=== PATIENT | female | born 1980 | race Caucasian/White ===

== ENCOUNTER 2017-04-30 10:16 | Emergency (ER) | payer BC ==
[2017-04-30 10:59] VITALS: BP 103/80
--- NOTE | 2017-04-30 12:05 | UC ---
Back Pain HPI - HPI Summary HPI Summary: Pt c/o gradual onset of right side flank pain and discomfort that is "comes and goes" over the last few days. Pt has history of kidney stones. - History of Current Complaint Chief Complaint: UCBackPain Stated Complaint: RT SIDED BACK PAIN Time Seen by Provider: 04/30/17 11:58 Hx Obtained From: Patient Hx Last Menstrual Period: 04/16/17 ?: No Onset/Duration: Gradual Onset, Lasting Days, Still Present Timing: Intermittent Severity Initially: Mild Severity Currently: Moderate Pain Intensity: 6 Back Pain: Is Discrete @ - right flank Character: Sharp, Spasmodic Aggravating Factor(s): Nothing Alleviating Factor(s): Nothing Associated Signs And Symptoms: Positive: Flank Pain - Risk Factors AAA Risk Factors: Negative TAD Risk Factors: Negative Cauda Equina Risk Factors: Negative Epidural Abscess Risk Factors: Negative - Allergies/Home Medications Allergies/Adverse Reactions: Allergies Allergy/AdvReac Type Severity Reaction Status Date / Time codeine Allergy Hallucinati Verified 04/30/17 10:54 ons PMH/Surg Hx/FS Hx/Imm Hx Previously Healthy: Yes - Surgical History Surgical History: None - Family History Known Family History: Positive: Cardiac Disease - Social History Occupation: Employed Full-time Lives: With Family Alcohol Use: None Substance Use Type: None Smoking Status (MU): Never Smoked Tobacco Have You Smoked in the Last Year: No Review of Systems Constitutional: Negative Skin: Negative Eyes: Negative ENT: Negative Respiratory: Negative Cardiovascular: Negative Gastrointestinal: Negative Genitourinary: Dysuria, Frequency, Urgency Motor: Negative Neurovascular: Negative Musculoskeletal: Negative Neurological: Negative Psychological: Negative Is Patient Immunocompromised?: No All Other Systems Reviewed And Are Negative: Yes Physical Exam Triage Information Reviewed: Yes Appearance: Pain Distress Vital Signs: Initial Vital Signs Temp 99.1 F 04/30/17 10:53 Pulse 102 04/30/17 10:53 Resp 16 04/30/17 10:53 BP 103/80 04/30/17 10:53 Pulse Ox 99 04/30/17 10:53 Vital Signs Reviewed: Yes Eye Exam: Normal ENT Exam: Normal Dental Exam: Normal Neck exam: Normal Respiratory Exam: Normal Cardiovascular Exam: Normal Abdominal Exam: Other Abdomen Description: Positive: CVA Tenderness (R), Other: - suprapubic tenderness Musculoskeletal Exam: Normal Neurological Exam: Normal Psychological Exam: Normal Skin Exam: Normal Back Pain Course/Dx - Differential Dx/Diagnosis Differential Diagnosis/HQI/PQRI: Other - UTI, kidney stone Provider Diagnoses: dysuria. hematuria Discharge - Sign-Out/Discharge Documenting (check all that apply): Discharge - Discharge Plan Condition: Stable Disposition: HOME Prescriptions: Cephalexin CAP* [Keflex 500 CAP*] 500 mg PO Q8H #21 cap Tamsulosin CAP* [Flomax CAP*] 0.4 mg PO DAILY #7 cap Patient Education Materials: Hematuria (ED), Dysuria (ED) Referrals: MALIK Cohen [Medical Doctor] - Dioni Kruse DO [Doctor of Osteopathy] - No Primary Care Phys,NOPCP [Primary Care Provider] - Angelito Weinstein MD [Medical Doctor] - Erlin Rodriguez MD [Medical Doctor] - Additional Instructions: Please establish care with a PCP as soon as possible. You have been given a referral to a urologist and public health technician - Billing Disposition and Condition Condition: STABLE Disposition: HOME
== END 2017-04-30 12:19 | disposition home or self-care (01) ==
LOC: UCCORT 10:16
DX: R30.0 Dysuria (principal); R31.9 Hematuria, unspecified; Z87.442 Personal history of urinary calculi; Z88.5 Allergy status to narcotic agent
CPT/HCPCS: 81003; 99212; G0463